=== PATIENT | male | born 1990 | race African-American/Black ===

== ENCOUNTER 2023-07-03 07:27 | Outpatient (CLI) | payer BC, SELFPAY | END 2023-07-03 07:28 | disposition home or self-care (01) | PROVIDERS: Visit Provider Physician Assistant Medical | DX: R20.0 Anesthesia of skin (principal); Z72.51 High risk heterosexual behavior | CPT/HCPCS: 80053; 84443; 86703 ==

== ENCOUNTER 2024-12-23 08:42 | Outpatient (CLI) | payer BC, SELFPAY | END 2024-12-23 08:43 | disposition home or self-care (01) | LOC: AMB 12-24 10:14 | PROVIDERS: Visit Provider Student in an Organized Health Care Education/Training Program | DX: R07.9 Chest pain, unspecified (principal) | CPT/HCPCS: A0998 ==